=== PATIENT | female | born 1960 | race Caucasian/White ===

== ENCOUNTER 2025-06-12 18:26 | Emergency (ER) | payer BC ==
[2025-06-12] MEDS ORDERED: Aspirin Chewable 81 MG TAB ONE (18:50)
[2025-06-12 18:52] LABS: #Basophils 0.1 thou/uL (0.0-0.2); #Eosinophils 0.3 thou/uL (0.0-0.7); #Lymphocytes 2.9 thou/uL (1.20-3.40); #Monocytes 0.8 thou/uL (0.11-0.59); #Neutrophils 5.9 thou/uL (1.40-6.50); %Basophils 1.2 % (0.0-1.0); %Eosinophils 3.2 % (0.0-10.0); %Lymphocytes 28.8 % (21.0-51.0); %Monocytes 7.5 % (0.0-10.0); %Neutrophils 59.3 % (42.0-75.0); Hematocrit 52.5 % (36.0-47.0); Hemoglobin 16.4 g/dL (12.0-16.0); Mean Corpuscular Hemoglobin 27.7 pg (27.0-31.0); Mean Corpuscular Volume 88.5 fl (78.0-98.0); Platelet Count 180 10x3/uL (130-400); Red Blood Cell (RBC) Count 5.93 mill/uL (4.20-5.40); White Blood Cell (WBC) Count 10.0 10x3/uL (4.8-10.8)
[2025-06-12 19:05] LABS: ALT (SGPT) 48 U/L (Less than 34); AST (SGOT) 65 U/L (11-34); Albumin 4.0 g/dL (3.1-4.5); Alkaline Phosphatase 97 U/L (40-110); Anion Gap 17 mmol/L (10-20); BUN (Urea Nitrogen) 11 mg/dL (9.8-20.1); Bilirubin, Total 0.6 mg/dL (0.3-1.2); Calc. Creatinine Clearance 0 mL/min (70-130); Calcium 9.5 mg/dL (7.8-10.44); Carbon Dioxide 23 mmol/L (23-31); Chloride 103 mmol/L (98-107); Globulin 4.8 g/dL (2.4-3.5); Glucose 135 mg/dL (80-115); Potassium 3.5 mmol/L (3.5-5.1); Sodium 139 mmol/L (136-145)
[2025-06-12 19:06] LABS: Troponin I 0.015 ng/mL (< 0.028)
[2025-06-12 20:45] LABS: Glucose, Urine (Dipstick) Negative (Negative); Leukocyte Negative (Negative); Protein, Urine (Dipstick) Trace mg/dL (Neg-Trace); Specific Gravity, Urine 1.015 (1.005-1.030)
[2025-06-12 20:46] LABS: Bacteria/HPF 2+ HPF (None Seen); CAUTI Indications for Culture Dysuria,urgency,freq; RBC/HPF None Seen HPF (0-3); WBC/HPF 0-3 HPF (0-3)
[2025-06-12 20:47] LABS: Urine Culture Reflex No No
[2025-06-12 20:48] LABS: Cocaine Metabolite Screen Negative (Negative); THC/Cannabinoid Screen Negative (Negative); Tricyclic Screen Negative (Negative)
[2025-06-12] MEDS ORDERED: niCARdipine 25 MG/10 ML SDV ONE (21:02)
== END 2025-06-12 21:59 | disposition short-term general hospital (02) ==
LOC: MADERS 18:26
DX: I10 Essential (primary) hypertension (principal); G45.9 Transient cerebral ischemic attack, unspecified; R29.701 NIHSS score 1; Z87.891 Personal history of nicotine dependence; Z91.148 Patient's other noncompliance with medication regimen for other reason
CPT/HCPCS: 70450; 71045; 80053; 80306; 81001; 83880; 84443; 84484; 85025; 93005; 96365; 96375; J7030